=== PATIENT | female | born 1965 | race Caucasian/White ===

== ENCOUNTER → 2016-07-07 | Outpatient (CLI) | payer OTHER ==
--- NOTE | 2016-07-07 14:01 | MAM ---
EXAM DESCRIPTION: MAMMO BREAST SCREENING BILATERAL CAD, images were reviewed with CAD technology, R2 computer-aided detection. CLINICAL HISTORY: [facility]. COMPARISON: 2012. FINDINGS: Routine views are obtained. Scattered nodular pattern with increased mammographic density period no dominant mass, architectural distortion or clustered microcalcification.. IMPRESSION: Benign exam. BIRAD CATEGORY: 2 BENIGN RECOMMENDATIONS: FOLLOW-UP: Routine screening mammogram in one year. According to the [employer], yearly mammograms are recommended starting at age 40 and continuing as long as a woman is in good health. Any breast change noted on a breast self-exam should be reported promptly to the patient's healthcare provider. Breast MRI is recommended for women with an approximately 20-25% or greater lifetime risk of breast cancer, including women with a strong family history of breast or ovarian cancer and women who have been treated for Hodgkin's disease. Electronically signed by: Emily Cho 07/07/2016 13:58
== END | disposition home or self-care (01) ==
LOC: MAMMO 08:00
PROVIDERS: ATTEND Family Medicine
DX: Z12.31 Encounter for screening mammogram for malignant neoplasm of breast (principal)

== ENCOUNTER → 2017-03-03 | Outpatient (CLI) | payer OTHER ==
--- NOTE | 2017-03-03 16:39 | CT ---
EXAM DESCRIPTION: Chest w/o Contrast CLINICAL HISTORY: LEFT LOBE NODULE COMPARISON: None. TECHNIQUE: Spiral-axial scans at 5.0 mm intervals through the lungs and thorax without IV contrast. Coronal and sagittal 2.0 Mm reconstructions. Total Exam DLP: 278.44 mGy-cm. This exam was performed according to our departmental dose-optimization program which includes automated exposure control, adjustment of the mA and/or kV according to patient size and/or use of iterative reconstruction technique; to reduce radiation dose to as low as reasonably achievable (ALARA). FINDINGS: 2 pleural-based blebs and bulla more prevalent in the upper lung javier with the largest bulla abutting the anterior medial pleural recess at the level of the aortic arch and pulmonary artery bifurcation. Scattered blebs in the parenchyma in a centrilobular distribution. The smaller parenchymal blebs are more numerous in the lower lung javier. Bilateral perihilar peribronchial wall thickening. 3 mm nodule abutting the horizontal fissure in the right upper lobe (series 2, image 32). 6 mm subsolid nodule in the right upper lobe apex abutting the pleural scarring (image 11). No masses or infiltrates. No pleural effusion or pneumothorax. Evaluation of the mediastinum and hilum is limited due to lack of IV contrast. Heterogeneous density in the bilateral thyroid gland which is symmetric. No large soft tissue masses in the base of the neck or upper mediastinum. No axillary adenopathy. No subdiaphragmatic fluid or free air in the included peritoneal space. Adrenal glands are normal size and density. IMPRESSION: 1. Bilateral centrilobular emphysematous changes with bilateral pleural-based bulla. Subclinical nodule in the right upper lobe. 6 mm solid nodule in the right apex abutting apical scarring. Similar six month follow-up according to 2017 Fleischner Society recommendations for subsolid lung nodule. Please see below.* 2. No significant soft tissue masses or adenopathy in the neck base or upper mediastinum. Evaluation of the hilum and mediastinum limited due to lack of IV contrast. *2017 Fleischner Society Recommendations for Subsolid Lung Nodule Follow-Up based on size (average of long- and short-axis diameters). Use most suspicious nodule for followup. Single <6 mm Ground glass: No routine follow-up <6 mm Part solid: No routine follow-up > or = 6 mm Ground glass: CT at 6-12 months to confirm persistence, then CT every 2 years until 5 years > or = 6 mm Part solid: CT at 3-6 months to confirm persistence, If unchanged and solid component remains<6mm, annual CT should be performed for 5 years. Electronically signed by: Stalin Hebert MD 03/03/2017 4:37 PM CDT
== END | disposition home or self-care (01) ==
LOC: CT 10:58
PROVIDERS: ATTEND Nurse Practitioner Family
DX: J43.0 Unilateral pulmonary emphysema [MacLeod's syndrome] (principal); R59.0 Localized enlarged lymph nodes

== ENCOUNTER → 2017-09-10 | Outpatient (CLI) | payer OTHER ==
--- NOTE | 2017-09-11 07:52 | CT ---
EXAM DESCRIPTION: Abdomen/Pelvis w/wo Contrast: Computed Tomography. CLINICAL HISTORY: ABD PAIN COMPARISON: None. TECHNIQUE: Spiral-axial scans at 5.0 mm intervals through the abdomen and pelvis before and after standard dose nonionic IV contrast. No oral contrast. Coronal and sagittal 2.0 mm reconstructions. 5 mm Delayed helical-axial scans, liver through the pubic symphysis. No adverse reactions. Total Exam DLP 1050.51 mGy - cm. This exam was performed according to our departmental CT dose-optimization program which includes automated exposure control, adjustment of the mA and/or kV according to patient size and/or use of iterative reconstruction technique; to reduce radiation dose to as low as reasonably achievable (ALARA). FINDINGS: Lung bases and pleura: Mosaic density in the parenchyma with scattered blebs. No acute infiltrate or pleural effusion in the bases. Liver, Stomach, Spleen, Adrenal Glands: Long axis of the right lobe of the liver is 19.4 cm. Minimal intrahepatic biliary dilatation. No focal lesions. Stomach is unremarkable. Other solid organs are negative. Pancreas, Gallbladder, Ducts: Gallbladder is visualized. Common bile duct dilated. Minimal low-density in the head of the pancreas but no definite mass. Pancreatic duct is visualized. Surrounding fat is unremarkable. Kidneys and Ureters: Less than 1 cm cyst in the medial right kidney otherwise negative. Mesentery: No fatty stranding or free air. No ascites. Aorta: Minimal atherosclerotic calcifications bilaterally relatively normal caliber. Small Bowel: Proximal fluid with distal fluid and gas. No air-fluid levels. Terminal Ileum/Cecum: Located in the mid and lower pelvis. Cecum distended by fluid. Appendix is not seen. Colon: Diffuse fecal material. Minimal redundancy of the sigmoid. Pelvic Organs: Minimal calcifications abutting the vaginal cuff. Bladder is small. Ovaries not well seen. Minimal fluid in the cul-de-sac. Spine and Bony Pelvis: Subchondral cysts or radiolucencies in the bilateral sacrum abutting the SI joints. Abdominal Wall/Back Soft Tissues: Negative. IMPRESSION: 1. Dilated common bile duct and intrahepatic ducts. Mild to moderate hepatomegaly. Low-density in the head of the pancreas but no definite mass. Gallbladder is present. Pancreatic duct is visualized. Cannot exclude cholecystitis or pancreatitis. Correlate with clinical findings and consider follow-up ultrasound right upper quadrant. 2. Less than 1 cm cyst in the right kidney. 3. Small bowel stasis but no obstruction. Diffuse fecal obstipation in the colon. 4. Possible early arthrosis bilateral inferior SI joints. Electronically signed by: Stalin Hebert MD 09/11/2017 7:50 AM CDT
== END ==
LOC: CT 08:00
PROVIDERS: ATTEND Family Medicine
DX: R10.9 Unspecified abdominal pain (principal); R10.2 Pelvic and perineal pain

== ENCOUNTER → 2017-09-25 | Outpatient (CLI) | payer OTHER ==
--- NOTE | 2017-09-25 14:14 | US ---
EXAM DESCRIPTION: Abdomen,Complete: Ultrasound. CLINICAL HISTORY: ABD PAIN COMPARISON: CT abdomen and pelvis 09/10/2017. TECHNIQUE: Transabdominal scannin-dimensional and Doppler modes. FINDINGS: Gallbladder: 5.4 mm echogenic polyp which does not move with patient change in position. Wall thickness 1.5 mm normal. No surrounding fluid. No sludge or stones. Nontender with transducer pressure. Common bile duct: Dilated measuring 8.7 mm caliber, no abnormal material in the included segment. Liver: Long axis right lobe measures 19.3 cm. Smooth capsule. No intrahepatic biliary dilatation. No ascites. Normal hepatopedal flow of the portal vein and other vascularity. Normal echogenicity. Pancreas: Increased echogenicity normal size with no definite mass. No cysts. Duct not dilated.. Abdominal aorta: Normal caliber from the proximal segment to the distal aortic bifurcation. IVC: visualized; normal caliber. Spleen normal echogenicity; long axis measurement is 9.8 cm. Right kidney: 10.4 cm long axis. Normal cortical echogenicity and thickness. No hydronephrosis or perinephric fluid. Left kidney: 10.9 cm long axis. Normal cortical echogenicity and thickness. No hydronephrosis or perinephric fluid. IMPRESSION: 1. 5 mm polyp in the gallbladder with no stones or sludge. Normal wall thickness and no surrounding fluid. Nontender with transducer pressure. 2. Common bile duct dilated; no definite stones. Consider hepatobiliary radionuclide imaging. 3. Fatty pancreas. Liver unremarkable. Normal ultrasound of the spleen. Normal ultrasound of the bilateral kidneys. Normal caliber of the abdominal aorta and IVC. No ascites. Electronically signed by: Stalin Hebert MD 09/25/2017 2:13 PM CDT
== END ==
LOC: US 08:30
PROVIDERS: ATTEND Family Medicine
DX: R10.9 Unspecified abdominal pain (principal); K82.4 Cholesterolosis of gallbladder

== ENCOUNTER → 2017-10-08 | Outpatient (CLI) | payer OTHER ==
--- NOTE | 2017-10-08 14:08 | NM ---
EXAM DESCRIPTION: Hepatobiliary w/CCK CLINICAL HISTORY: Abnormal ultrasound abdomen COMPARISON: Ultrasound abdomen dated September 25, 2017 TECHNIQUE: Routine hepatobiliary scan was performed following intravenous administration of 8.5 mCi technetium 99m mebrofenin. 14 ounces of Ensure Plus fatty meal was used to stimulate gallbladder contraction. FINDINGS: Hepatobiliary scan shows prompt accumulation of the radiopharmaceutical within the liver and excretion into the biliary ductal system, gallbladder, and small bowel. Gallbladder ejection fraction is assessed following oral ingestion of fatty meal. Patient reports epigastric abdominal pain. Gallbladder ejection fraction is calculated at 79%. IMPRESSION: 1. Visualization of the gallbladder essentially excludes acute cholecystitis. 2. Normal gallbladder ejection fraction at 79% (normal range is greater than 35%). 3. Patient reports epigastric abdominal pain following oral ingestion of 14 ounces of Ensure Plus fatty meal. Electronically signed by: Dimitrios Browne MD 10/08/2017 2:07 PM CDT
== END ==
LOC: NM 08:26
PROVIDERS: ATTEND Family Medicine
DX: R93.8 Abnormal findings on diagnostic imaging of other specified body structures (principal)
CPT/HCPCS: 78227; A9537

== ENCOUNTER → 2017-11-12 | Outpatient (CLI) | payer OTHER ==
--- NOTE | 2017-11-12 13:33 | MRI ---
EXAM DESCRIPTION: Cervical Spine: MRI. CLINICAL HISTORY: RADICULOPATHY COMPARISON: None. TECHNIQUE: Multiplanar MRI, multiple sequences, non-contrast High-field. FINDINGS: C2-3: Normal signal in the disc and normal disc space. Canal and right neuroforamen are patent. Left facet arthrosis with small fluid collection posterior to the facet. Mild left neural foraminal narrowing. C3-4: Minimal disc desiccation no significant bulging. Bilateral uncinate spurs with mild bilateral foraminal narrowing. Bilateral facets are unremarkable. Canal is patent. C4-5: Disc desiccation and minimal disc space loss. Anterior disc bulging and endplate ridging. Posterior broad-based disc bulge almost abutting the cord. Bilateral uncinate spurs and bilateral moderate neural foraminal narrowing. Canal is patent. Facets are negative. C5-C7 fusion construct anterior. No abnormal bony signal. No soft tissue mass or fluid collection around the hardware, vertebral bodies, or in the spinal canal. Minimal posterior bony bulging of the disc spaces and lateral uncinate spurs at both levels but no significant canal or neural foraminal narrowing. Facets negative. C7-T1: Disc desiccation no significant bulging. Bilateral uncinate spurs with bilateral neural foraminal narrowing. Facets are unremarkable. Normal signal in the T1 and T2 disc with no bulging. Disc spaces preserved. Canal and neural foramina are patent. Facets negative. Spinal alignment slightly kyphotic with no scoliosis.. No cord compression or cord edema. Atlantoaxial joint is minimally hypertrophied.. Base of the cerebellar tonsils is at the level of the foramen magnum. Paravertebral soft tissues are unremarkable. Vertebral bodies are not compressed at any level. Normal marrow signal in the remaining vertebral bodies and the posterior elements. IMPRESSION: 1. C5-C7 anterior fusion construct. No bony or hardware complications. No canal or foraminal stenosis. Normal signal in the cord. 2. Posterior broad-based C4-5 disc bulge almost abutting the cord. No canal or neural foraminal stenosis. 3. Left C2-3 facet arthrosis is small fluid collection posterior to the facet. Mild left neural foraminal narrowing. Electronically signed by: Stalin Hebert MD 11/12/2017 1:32 PM CDT
== END ==
LOC: MRI 10:00
DX: M54.12 Radiculopathy, cervical region (principal); M50.221 Other cervical disc displacement at C4-C5 level; Z98.1 Arthrodesis status

== ENCOUNTER 2017-11-19 14:04 | Emergency (ER) | payer OTHER ==
[2017-11-19] MEDS ORDERED: SODIUM CHLORIDE 0.9% 1000ML 1,000 ML IVS ONE (14:40)
[2017-11-19] MEDS ORDERED: ONDANSETRON ODT 8 MG TAB SL ONE (14:40)
[2017-11-19] MEDS ORDERED: MORPHINE SULFATE INJ 10 MG/ML VIAL IV ONE ×2 (14:40→16:32)
--- NOTE | 2017-11-19 14:52 | ED.PDOC ---
History of Present Illness - General Chief Complaint: GI Problem Time Seen by Provider: 11/19/17 14:23 Information Source: patient, family Exam Limitations: no limitations - History of Present Illness Initial Comments: Patient comes in today with right upper quadrant and epigastric abdominal pain that has been on-going for the past 4 months. She has be under going outpatient workup. Patient states she had a CAT scan that showed a suspicion for an abnormality in her gallbladder without stones and was sent for ultrasound that was normal. She was referred for HIDA scan but that showed a normal ejection fraction. However, her physician was still very concerned this was her gallbladder and she was sent for consult with a surgeon. However, the surgery consult wanted GI to be involved prior to proceeding and sent her back to her PCP for GI consult. However, her abdominal pain has worsened since Thursday. The pain is sharp and radiates to her back. It is a 10/10 since it started worsening Thursday. Patient has continuous nausea with bouts of emesis and inability to take sufficient by mouth intake since August. Patient has lost 15 pounds over the past 3 months and cannot keep enough down to keep her weight on. This morning she had temperature of 100.8 and so decided she could no longer wait and came to the ER. Patient's only past medical history is for chronic pain from spinal stenosis in the neck which she is to have surgery on. Patient does smoke 2 packs a day but does not drink nor do drugs. Abdominal Pain Onset Location: RUQ, epigastric Pain Radiation: back Quality: severe, stabbing Timing/Duration: getting worse Improving Factors: nothing Worsening Factors: nothing Associated Symptoms: back pain, fever/chills, nausea/vomiting Review of Systems - Review of Systems Constitutional: States: fever. Denies: no symptoms reported, chills, diaphoresis EENTM: States: no symptoms reported. Denies: eye pain, ear pain, throat pain Respiratory: States: no symptoms reported. Denies: cough, short of breath, wheezing Cardiology: States: no symptoms reported. Denies: chest pain, edema, palpitations Gastrointestinal/Abdominal: States: see HPI Genitourinary: States: no symptoms reported Musculoskeletal: States: no symptoms reported Skin: States: no symptoms reported Neurological: States: no symptoms reported Past Medical History (General) - Patient Medical History Hx Other PMH: Yes - Chronic pain spinal stenosis Surgical History: other - Discectomy, Hyst Family Medical History - Family History Mother Family History: No Known Physical Exam - Physical Exam General Appearance: Frail, Ill Appearing Eyes, Ears, Nose, Throat Exam: PERRL/EOMI, normal ENT inspection, TMs normal, pharynx normal Neck: non-tender, full range of motion, supple, normal inspection Respiratory: chest non-tender, lungs clear, normal breath sounds, no respiratory distress, no accessory muscle use Cardiovascular/Chest: normal peripheral pulses, regular rate, rhythm, no edema, no gallop, no JVD, no murmur Peripheral Pulses: No deficit - soft, distended with hyperactive BS, TTP at the epigastrum and RUQ with voluntary guarding and no rebound Back Exam: normal inspection, no CVA tenderness Extremity: normal range of motion Neurologic: alert, oriented x 3 Progress - Progress Progress: 11/19/17 17:31 11/19/17 14:40 Hold Metformin x 48Hrs [id number] Laboratory Results WBC 5.2 K/mm3 (4.8-10.8) 11/19/17 15:00 RBC 4.42 M/mm3 (4.20-5.40) 11/19/17 15:00 Hgb 15.3 gm/dL (12.0-16.0) 11/19/17 15:00 Hct 43.8 % (36.0-47.0) 11/19/17 15:00 MCV 99.2 fl (81.0-99.0) H 11/19/17 15:00 MCH 34.6 pg (27.0-31.0) H 11/19/17 15:00 MCHC 34.8 g/dL (33.0-37.0) 11/19/17 15:00 RDW 13.4 % (11.5-14.5) 11/19/17 15:00 Plt Count 193 K/mm3 (130-400) 11/19/17 15:00 MPV 7.8 fl (7.40-10.4) 11/19/17 15:00 Absolute Neuts (auto) 2.50 K/uL (1.8-6.8) 11/19/17 15:00 Absolute Lymphs (auto) 2.20 K/uL (1.0-3.4) 11/19/17 15:00 Absolute Monos (auto) 0.30 K/uL (0.2-0.8) 11/19/17 15:00 Absolute Eos (auto) 0.20 K/uL (0.0-0.4) 11/19/17 15:00 Absolute Basos (auto) 0.00 K/uL (0.0-0.1) 11/19/17 15:00 Neutrophils % 47.4 % (42.0-78.0) 11/19/17 15:00 Lymphocytes % 41.8 % (20.0-50.0) 11/19/17 15:00 Monocytes % 6.3 % (2.0-9.0) 11/19/17 15:00 Eosinophils % 3.8 % (1.0-5.0) 11/19/17 15:00 Basophils % 0.7 % (0.0-2.0) 11/19/17 15:00 Sodium 139 mmol/L (135-145) 11/19/17 15:00 Potassium 3.5 mmol/L (3.6-5.0) L 11/19/17 15:00 Chloride 103 mmol/L (101-111) 11/19/17 15:00 Carbon Dioxide 30 mmol/L (21-31) 11/19/17 15:00 Anion Gap 9.5 (12-18) L 11/19/17 15:00 BUN 7 mg/dL (7-18) 11/19/17 15:00 Creatinine 0.42 mg/dL (0.6-1.3) L 11/19/17 15:00 BUN/Creatinine Ratio 16.7 (10-20) 11/19/17 15:00 Random Glucose 91 mg/dL (70-105) 11/19/17 15:00 Serum Osmolality 275.1 mOsm/L (275-295) 11/19/17 15:00 Calcium 8.8 mg/dL (8.4-10.2) 11/19/17 15:00 Total Bilirubin 0.3 mg/dL (0.2-1.0) 11/19/17 15:00 AST 19 IU/L (10-42) 11/19/17 15:00 ALT 25 IU/L (10-60) 11/19/17 15:00 Alkaline Phosphatase 140 IU/L (42-121) H 11/19/17 15:00 Serum Total Protein 6.9 gm/dL (6.4-8.2) 11/19/17 15:00 Albumin 3.8 g/dl (3.2-5.5) 11/19/17 15:00 Globulin 3.1 gm/dL (2.3-3.5) 11/19/17 15:00 Albumin/Globulin Ratio 1.2 (1.1-1.9) 11/19/17 15:00 Amylase 69 U/L (28-100) 11/19/17 15:00 Lipase 19 U/L (22-51) L 11/19/17 15:00 Patient Name: PAULINA XIE Gender: Female Date of : 1965 Referring Physician: ROBINSON IRBY Organization: [facility] Accession Number: [id number] Requested Date: November 19, 2017 14:40 Report Status: Final Requested Procedure: 1 Procedure Description: Abdomen w/wo Contrast Modality: CT Findings Reporting MD: Raissa Hebert Fellow MD: Not available Dictation Time: Interactive Media Marketing Strategist: Not available Inserter Date: EXAM DESCRIPTION: Abdomen w/wo Contrast: Computed Tomography. CLINICAL HISTORY: RUQ pain/?pancreatic fullness. Gallbladder polyp. Normal gallbladder ejection fraction hepatobiliary imaging scan. Dilated common bile duct. COMPARISON: CT scan abdomen and pelvis 09/10/2017. Ultrasound abdomen 09/25/2017. Radionuclide hepatobiliary scan 10/08/2017. TECHNIQUE: Spiral-axial scans at 5.0 mm intervals, from the diaphragms through the upper pelvis, before and after nonionic IV contrast. No oral contrast. Coronal and sagittal 2.0 mm reconstructions. No no delayed scans. No adverse reactions. DLP 436.72 mGy-cm. This exam was performed according to our departmental CT dose-optimization program which includes automated exposure control, adjustment of the mA and/or kV according to patient size and/or use of iterative reconstruction technique; to reduce radiation dose to as low as reasonably achievable (ALARA). FINDINGS: Lung bases and pleura: Mosaic densities and bilateral emphysematous changes. No pleural effusion. Liver, stomach, adrenal glands, and spleen: Long axis of the right hepatic lobe 21.7 cm. Intrahepatic biliary dilatation. No focal lesions. Stomach is unremarkable. Other solid organs are negative. Pancreas/Gallbladder/Ducts: Gallbladder slightly contracted with mild wall thickening. No fluid surrounding the gallbladder. Heterogeneous enhancement decreased density of the head of the pancreas, anterior to the distal ducts but no enlargement since the prior study. Pancreatic duct also appears stable. Stable dilation of the proximal and mid common bile duct. No abnormal fatty density or fluid. Kidneys and Ureters: Negative. Distal ureters are not included on the study. Mesentery: No free air or free fluid. Aorta: Atherosclerotic calcification and intimal wall thickening distally above the bifurcation. No paravertebral mass. Small Bowel: Mostly fluid filled with no air-fluid levels or [facility], [address] [place] [address] T [phone] F [phone] [email or web address] - Report exported on Lilo, Nov 19, 2017 17:30:59 -0500 - Page 2 of 2 significant distention. Terminal Ileum/Cecum: Not well seen Colon: Approximately distended by gas. Minimal thickening of the mucosa of the mid and distal descending colon but no proximal dilation or thickening. Spine: Minimal spondylosis of the lower thoracic and upper lumbar spine. Abdominal Wall/Back Soft Tissues: Fatty diastases of the umbilicus but not containing bowel. Stable since the prior study. IMPRESSION: 1. Size of the pancreatic head is stable since the prior study. Low heterogeneous density of the head anterior to the cortex but this is also stable. No definite mass. No peripancreatic lymph nodes or mesenteric changes. 2. Common bile duct remains dilated and stable. No free fluid. Stable hepatomegaly of the liver. Minimal intrahepatic duct dilation. 3. Suggestion of mucosal thickening distal colon but not completely imaged on the study. This was not seen on the prior study. 4. Minimal centrilobular emphysematous changes in the lungs bilaterally stable since CT scan March 03, 2017. Discussed with patient stability of the CT findings. No evidence of acute cholecystitis or acute change. Patient understands my concern with the increased diameter and enlargement of the head of the pancreas that an ERCP may be necessary and therefore GI consult is the appropriate next step. She is comfortable now and states wanted to make sure that nothing had worsened with the recent increase in temp. She will call in the morning and speak to her PCP and get GI consult suggested first by surgery. - EKG/XRAY/CT CT: Abdomen see progress note Departure - Departure Clinical Impression: Abdominal pain Qualifiers: Abdominal location: right upper quadrant Qualified Code(s): R10.11 - Right upper quadrant pain Disposition: Discharge to Home or Self Care Condition: Good Departure Forms: ED Discharge - Pt. Copy, Patient Portal Self Enrollment Diet: bland diet Referrals: RAISSA ESTRADA [Primary Care Provider] - 1-2 Weeks Additional Instructions: follow up with PCP in am to arrange GI consult. Return to ER for intractable emesis, severe pain, temp >100.5, or change in symptoms.
[2017-11-19 14:57] VITALS: TEMP 97.4
[2017-11-19 16:28] VITALS: BP 87/49; O2SAT 94
--- NOTE | 2017-11-19 16:36 | CT ---
EXAM DESCRIPTION: Abdomen w/wo Contrast: Computed Tomography. CLINICAL HISTORY: RUQ pain/?pancreatic fullness. Gallbladder polyp. Normal gallbladder ejection fraction hepatobiliary imaging scan. Dilated common bile duct. COMPARISON: CT scan abdomen and pelvis 09/10/2017. Ultrasound abdomen 09/25/2017. Radionuclide hepatobiliary scan 10/08/2017. TECHNIQUE: Spiral-axial scans at 5.0 mm intervals, from the diaphragms through the upper pelvis, before and after nonionic IV contrast. No oral contrast. Coronal and sagittal 2.0 mm reconstructions. No no delayed scans. No adverse reactions. DLP 436.72 mGy-cm. This exam was performed according to our departmental CT dose-optimization program which includes automated exposure control, adjustment of the mA and/or kV according to patient size and/or use of iterative reconstruction technique; to reduce radiation dose to as low as reasonably achievable (ALARA). FINDINGS: Lung bases and pleura: Mosaic densities and bilateral emphysematous changes. No pleural effusion. Liver, stomach, adrenal glands, and spleen: Long axis of the right hepatic lobe 21.7 cm. Intrahepatic biliary dilatation. No focal lesions. Stomach is unremarkable. Other solid organs are negative. Pancreas/Gallbladder/Ducts: Gallbladder slightly contracted with mild wall thickening. No fluid surrounding the gallbladder. Heterogeneous enhancement decreased density of the head of the pancreas, anterior to the distal ducts but no enlargement since the prior study. Pancreatic duct also appears stable. Stable dilation of the proximal and mid common bile duct. No abnormal fatty density or fluid. Kidneys and Ureters: Negative. Distal ureters are not included on the study. Mesentery: No free air or free fluid. Aorta: Atherosclerotic calcification and intimal wall thickening distally above the bifurcation. No paravertebral mass. Small Bowel: Mostly fluid filled with no air-fluid levels or significant distention. Terminal Ileum/Cecum: Not well seen Colon: Approximately distended by gas. Minimal thickening of the mucosa of the mid and distal descending colon but no proximal dilation or thickening. Spine: Minimal spondylosis of the lower thoracic and upper lumbar spine. Abdominal Wall/Back Soft Tissues: Fatty diastases of the umbilicus but not containing bowel. Stable since the prior study. IMPRESSION: 1. Size of the pancreatic head is stable since the prior study. Low heterogeneous density of the head anterior to the cortex but this is also stable. No definite mass. No peripancreatic lymph nodes or mesenteric changes. 2. Common bile duct remains dilated and stable. No free fluid. Stable hepatomegaly of the liver. Minimal intrahepatic duct dilation. 3. Suggestion of mucosal thickening distal colon but not completely imaged on the study. This was not seen on the prior study. 4. Minimal centrilobular emphysematous changes in the lungs bilaterally stable since CT scan March 03, 2017. Electronically signed by: Stalin Hebert MD 11/19/2017 4:35 PM CDT
== END 2017-11-19 17:45 | disposition home or self-care (01) ==
LOC: ER 14:04
DX: R10.11 Right upper quadrant pain (principal); G89.29 Other chronic pain; M48.02 Spinal stenosis, cervical region; F17.200 Nicotine dependence, unspecified, uncomplicated; R11.2 Nausea with vomiting, unspecified
CPT/HCPCS: 36415; 74170; 80053; 82150; 83690; 85025; J2270; J7030

== ENCOUNTER → 2018-03-25 | Outpatient (CLI) | payer OTHER ==
--- NOTE | 2018-03-26 08:11 | RAD ---
EXAM DESCRIPTION: Elbow,Left 3 Views CLINICAL HISTORY: 52 years Female, PAIN COMPARISON: None. TECHNIQUE: AP lateral and oblique images. FINDINGS: Diffusion is displacing the anterior fat pad. Large soft tissue mass posterior and superior to the olecranon process in the subcutaneous tissues. No definite fracture. Posterior to the medial condyle of the humerus. Small enthesophyte at the lateral insertion of the common extensor tendon. Radiocapitellar and ulnotrochlear joint spaces are unremarkable. No abnormal radiodense objects in the soft tissues. IMPRESSION: Joint effusion with displacement of anterior fat pad. Posterior soft tissue mass abutting the olecranon process and the triceps tendon insertion. Posterior to the medial epicondyle humerus. No radiodense loose bodies. No definite fracture. Electronically signed by: Stalin Hebert MD 03/26/2018 8:10 AM [facility]
== END ==
LOC: RAD 13:08
PROVIDERS: ATTEND Orthopaedic Surgery
DX: M25.522 Pain in left elbow (principal); R22.32 Localized swelling, mass and lump, left upper limb; M25.422 Effusion, left elbow

== ENCOUNTER → 2018-09-14 | Outpatient (CLI) | payer OTHER ==
--- NOTE | 2018-09-14 14:42 | CT ---
Procedure: CT LUNG SCREENING Exam Date: 09/14/2018. Ordering Provider: SPEEDY BLAND Clinical Indication: LUNG SCREEN 60+ pack years. Current smoker. This patient meets eligibility criteria for low-dose CT lung cancer screening. Comparison: Chest without contrast 03/03/2017. Technique: Using a multislice scanner, sequential helical axial imaging was obtained in the thorax, 2.5 mm thickness, 2.5 mm separation, from the level of the thoracic inlet through the lung bases without IV contrast. A low dose protocol was utilized for BMI less than 30: BMI: 16.7. CTDI: 1.76 mGy. 120. kVp. 45 mA. DLP 67.43 mGy centimeters. 2D sagittal and coronal reconstructed images, 6.0 mm thickness, were obtained. This exam was performed according to our departmental dose optimization program which includes use of automated exposure control, adjustment of the mA and/or kV according to patient size and/or use of iterative reconstruction technique. Nodule measurements under 10 mm are given as mean value of 3 axes diameters. FINDINGS: Lungs and large airways: Bilateral blebs and bulla in the upper lung javier mostly peripheral and abutting the medial or lateral pleura. Consistent with paraseptal emphysema. Fewer bulla and more blebs in the lower lung javier, and most of these are peripherally and posterior. 4 mm nodule associated with septation extending to the pleura in the medial apex on the right on axial series 2, image 15. The nodule was not clearly seen on the prior study which may be due to technique (greater slice thickness on the prior study.) Bilateral pleural-parenchymal scarring in the base of the middle lobe in the inferior lingula. Stable. Atelectasis in the lateral basilar segment of the right lower lobe abutting the pleura. Also in the bilateral posterior recesses of the lower lobes more left than right. Minimal peribronchial cuffing centrally is stable. No large abnormal nodule, no focal infiltrate, and no mass. Pleura and space: Multiple blebs abutting the pleura. Bilateral small focal regions of thickening. No effusion or pneumothorax bilaterally. Mediastinum and antonia: evaluation limited by low dose technique and lack of IV contrast. Increased density in the fatty region of the mediastinum abutting the anterior superior vena cava in the anterior inferior vena cava. Also chronic pericardial thickening and increased fatty density in the mediastinal recess between the proximal aorta and pulmonary artery and the left atrium. This is also stable. No abnormally large lymph nodes. No new soft tissue masses. Heart and great vessels: Minimal coronary artery calcification. Chest wall, lower neck, axillae: Evaluation also limited by same factors as described above. Possibility of soft tissues. Dense fibroglandular breasts bilaterally. No enlarged lymph nodes. Upper abdomen: included peritoneal space is unremarkable. Limited amount of fat. Osseous structures: Evaluation limited by low dose MIP technique. Minimal dextroscoliosis. No lytic or blastic lesions.. IMPRESSION: 1. 4 mm nodule in the right apex may actually be focal pleural thickening or a thickened septa with extension to the pleura. No nodule seen on the prior study which may be due to wider slice thickness on that study. Diffuse paraseptal type emphysema more prevalent in the upper lobes. Region of new atelectasis versus early infiltrate in the lateral right lower lobe base since the prior study. [facility] Best Practice recommendations:. Please see below for Lung RADS category and FOLLOW-UP.* 2. Extremely dense tissue in bilateral breasts. Consider bilateral screening mammography if not performed in the past 12 months. *Lung RADS category CATEGORY 2- Nodules with a very low likelihood (less than 1%) of becoming a clinically active cancer due to size or lack of growth. Nodules: Solid or part solid nodule(s) less than 6mm, new solid nodule less than 4mm. Ground glass nodule(s) less than 20mm or unchanged or slow growing ground glass nodule 20mm or greater. Cat 3 or 4 nodule unchanged for 3 or more months. FOLLOW-UP: Continue annual screening with a Low Dose Chest CT in 12 months for re-evaluation. Electronically signed by: Stalin Hebert MD 09/14/2018 2:40 PM CDT
== END ==
LOC: CT 09:00
PROVIDERS: ATTEND Emergency Medicine
DX: Z12.2 Encounter for screening for malignant neoplasm of respiratory organs (principal); R91.8 Other nonspecific abnormal finding of lung field

== ENCOUNTER 2019-04-11 13:12 | Emergency (ER) | payer OTHER ==
--- NOTE | 2019-04-11 13:36 | ED.PDOC ---
History of Present Illness - General Stated Complaint: left arm weakness Time Seen by Provider: 04/11/19 13:30 Source: patient, RN notes reviewed, Vital Signs reviewed Exam Limitations: no limitations Additional Information: this is a 53-year-old white female who presents today with complaints of left arm weakness starting approximately 2:30 PM yesterday. She fell asleep in the recliner while watching a football game. She awakened with left arm numbness and weakness. She states that she expected it to go away but it has not. Because of neck problems. She is treated for chronic pain management. She smokes 2 packs per day of tobacco and is not on any cholesterol medications. She has had no effects of her speech. She has no problems with walking. She has never had any strokes from her knowledge. She does have history of chronic headaches and has had CT evaluation of the head in the past. She is unsure of her last one. - History of Present Illness Allergies/Adverse Reactions: Allergies NO KNOWN ALLERGY Allergy (Unverified 04/28/12 11:03) Home Medications: Ambulatory Orders Jeybmvtdwbpom-Litm-Mfgzvurehk [Fioricet] 1 tab PO PRN 04/11/19 Cyclobenzaprine HCl [Flexeril] 10 mg PO TID 04/11/19 Duloxetine HCl [Cymbalta] 60 mg PO BID 04/11/19 Ergocalciferol [Vitamin D] 1 capsule PO WKLY 04/11/19 Esomeprazole Magnesium [Nexium] 40 mg PO DAILY 04/11/19 Estradiol 2 mg PO DAILY 04/11/19 Gabapentin 800 mg PO TID 04/11/19 HYDROcodone 10MG/APAP 325MG [[place] 10/325] 1 ea PO DAILY 04/11/19 Methocarbamol 750 mg PO Q6HR 04/11/19 Potassium Chloride [Potassium Chloride ER] 8 meq PO DAILY 04/11/19 SUMAtriptan SUCCINATE [Imitrex] 50 mg PO PRN 04/11/19 Review of Systems - Review of Systems Constitutional: States: no symptoms reported. Denies: chills, fever EENTM: States: no symptoms reported Respiratory: States: no symptoms reported Cardiology: States: no symptoms reported Gastrointestinal/Abdominal: States: no symptoms reported Genitourinary: States: no symptoms reported Musculoskeletal: States: other - left upper extremity weakness. She is usually right handed dates that she can write with both. Skin: States: no symptoms reported Neurological: States: numbness, weakness, other - involving the left upper extremity Endocrine: States: no symptoms reported Hematologic/Lymphatic: States: no symptoms reported All other Systems: Reviewed and Negative Past Medical History (General) - Patient Medical History Hx Stroke: No Hx Cardiac Disorders: No Hx Diabetes: No Family Medical History - Family History Mother Family History: No Known Physical Exam - Physical Exam General Appearance: Alert, Comfortable, No apparent distress Eye Exam: bilateral normal ENT Exam: normal ENT inspection, hearing grossly normal, pharynx normal Neck: non-tender, full range of motion, supple, normal inspection, trachea midline Respiratory: chest non-tender, lungs clear, normal breath sounds, no respiratory distress, no accessory muscle use Cardiovascular/Chest: normal peripheral pulses, regular rate, rhythm, no edema, no gallop, no JVD, no murmur Peripheral Pulses: radial,right: 2+, radial,left: 2+ Gastrointestinal/Abdominal: normal bowel sounds, non tender, soft, no organomegaly, no pulsatile mass Back Exam: normal inspection, no CVA tenderness, no vertebral tenderness Extremities Exam: non-tender, no evidence of injury, no edema 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, 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 Exam: normal hearing, normal speech, PERRL, other - no facial asymmetry normal speech, obvious weakness in the left hand polisher eyeglass frames and use of biceps Coordination/Gait: ABN nose to finger (L) Motor/Sensory: sensory deficit, weak motor strength LUE, other - no pronator drift DTR: 2+: Biceps, left, Biceps, right, Triceps, left, Triceps, right, Patellar, left, Patellar, right, Babinski, left, Babinski, right Skin Exam: normal color, warm/dry, other - obacco staining of fingernails and mild clubbingnoted Comments: NIH score of even for the left polisher eyeglass frames strength weakness Progress - Progress Progress: 04/11/19 15:17 I discussed the patient's results with her and her family member that is present. She told me that she has had a recent MRI of her cervical spine and she is followed by Dr. Daly neurology. She reports that she has had a Chiari malformation there as well. She has Dr. Daly's number and I'm going to go ahead and discuss the patient's symptoms with him and see how he would like to handle it. 04/11/19 15:27 call put in to neurologist office. They state that he will call me back. 04/11/19 16:14 Dr. Daly's office states that he is performing an EMG currently and will be able to speak to us in about 15 minutes. Pt is aware of this. 04/11/19 18:02 Dr. Brooks called back with the neuro consultation. It is his belief that the patient needs another MRI of her cervical spine and that she will be okay to discharge home. I have discussed this with the patient and her family and answered all questions. She agrees with the plan. Dr. Daly's office never called us back - Results/Orders Results/Orders: Laboratory Tests 04/11/19 04/11/19 04/11/19 13:51 13:51 13:51 WBC 6.5 RBC 4.69 Hgb 15.5 Hct 45.6 MCV 97.1 MCH 33.1 H MCHC 34.0 RDW 13.6 Plt Count 198 MPV 7.6 Absolute Neuts (auto) 3.70 Absolute Lymphs (auto) 2.10 Absolute Monos (auto) 0.50 Absolute Eos (auto) 0.20 Absolute Basos (auto) 0.10 Neutrophils % 56.7 Lymphocytes % 32.3 Monocytes % 7.3 Eosinophils % 2.6 Basophils % 1.1 Sodium 134 L Potassium 3.7 Chloride 98 L Carbon Dioxide 24 Anion Gap 15.7 BUN 6 L Creatinine 0.56 L BUN/Creatinine Ratio 10.7 Random Glucose 87 Serum Osmolality 265.2 L Calcium 9.0 Total Bilirubin 0.6 AST 18 ALT 18 Alkaline Phosphatase 100 Troponin I < 0.02 Serum Total Protein 6.7 Albumin 3.5 Globulin 3.2 Albumin/Globulin Ratio 1.1 IMPRESSION: Single AP portable upright view of the chest shows cardiac silhouette and pulmonary vasculature to be within normal limits. Lungs are normally aerated and clear. No obvious pleural effusion or pneumothorax is seen. ACDF changes to the lower cervical spine are seen. Electronically signed by: Leighton Morales MD 04/11/2019 2:22 PM [facility] IMPRESSION: 1. No acute intracranial abnormality. This exam was performed according to our departmental dose-optimization program, which includes automated exposure control, adjustment of the mA and/or kV according to patient size and/or use of iterative reconstruction technique. Electronically signed by: Richie Art DO 04/11/2019 2:25 PM [facility] - EKG/XRAY/CT EKG: Sinus, no ST T wave changes Comments: unremarkable ECG, rate 82, nl axis Stroke Information - Onset of Symptoms Stroke Onset of Symptoms Date: 04/10/191429 - Contraindications Antithrombotic Contraindication: Treatment not indicated t-PA Contraindication: Drug Tx Not Indicated Departure - Departure Clinical Impression: Left arm weakness Nicotine dependence Qualifiers: Nicotine product type: cigarettes Substance use status: uncomplicated Qualified Code(s): F17.210 - Nicotine dependence, cigarettes, uncomplicated Chronic pain Qualifiers: Chronic pain type: other chronic pain Qualified Code(s): G89.29 - Other chronic pain Time of Disposition: 18:05 Disposition: Discharge to Home or Self Care Condition: Good Instructions: Hand Numbness Referrals: SPEEDY BLAND [Primary Care Provider] - 1-2 Weeks Home Medications: Ambulatory Orders Hvtzbmwknnrxb-Zoci-Sqitokcxnq [Fioricet] 1 tab PO PRN 04/11/19 Cyclobenzaprine HCl [Flexeril] 10 mg PO TID 04/11/19 Duloxetine HCl [Cymbalta] 60 mg PO BID 04/11/19 Ergocalciferol [Vitamin D] 1 capsule PO WKLY 04/11/19 Esomeprazole Magnesium [Nexium] 40 mg PO DAILY 04/11/19 Estradiol 2 mg PO DAILY 04/11/19 Gabapentin 800 mg PO TID 04/11/19 HYDROcodone 10MG/APAP 325MG [[place] 10/325] 1 ea PO DAILY 04/11/19 Methocarbamol 750 mg PO Q6HR 04/11/19 Potassium Chloride [Potassium Chloride ER] 8 meq PO DAILY 04/11/19 SUMAtriptan SUCCINATE [Imitrex] 50 mg PO PRN 04/11/19 Additional Instructions: the patient is to follow-up with Dr. Daly's office. MRI to be recommended. If any progression of symptoms return to emergency room for further evaluation. Continue present meds.
--- NOTE | 2019-04-11 14:24 | RAD ---
EXAM DESCRIPTION: Chest,1 View CLINICAL HISTORY: weakness COMPARISON: April 28, 2012 IMPRESSION: Single AP portable upright view of the chest shows cardiac silhouette and pulmonary vasculature to be within normal limits. Lungs are normally aerated and clear. No obvious pleural effusion or pneumothorax is seen. ACDF changes to the lower cervical spine are seen. Electronically signed by: Leighton Morales MD 04/11/2019 2:22 PM [facility]
--- NOTE | 2019-04-11 14:26 | CT ---
EXAM DESCRIPTION: Head CLINICAL HISTORY: LUE weakness COMPARISON: None available TECHNIQUE: Non contrast cranial CT with multiplanar reconstructions. FINDINGS: No acute intracranial hemorrhage, transcortical infarct, mass or mass effect. No intra or extra-axial fluid collection. No focal edema or midline shift. The ventricle and sulci are normal for age. No hydrocephalus. The kaye-white matter differentiation is intact. No displaced calvarial fracture. The visualized paranasal sinuses and the mastoids are clear. IMPRESSION: 1. No acute intracranial abnormality. This exam was performed according to our departmental dose-optimization program, which includes automated exposure control, adjustment of the mA and/or kV according to patient size and/or use of iterative reconstruction technique. Electronically signed by: Rihcie Art DO 04/11/2019 2:25 PM [facility]
[2019-04-11 18:27] VITALS: BP 122/84; TEMP 98.1; O2SAT 98
== END 2019-04-11 18:15 | disposition home or self-care (01) ==
LOC: ER 13:12
DX: R29.898 Other symptoms and signs involving the musculoskeletal system (principal); G89.29 Other chronic pain; F17.210 Nicotine dependence, cigarettes, uncomplicated; R20.0 Anesthesia of skin; Z79.899 Other long term (current) drug therapy